=== PATIENT | male | born 1985 | race Caucasian/White ===

== ENCOUNTER 2021-10-18 18:34 | Emergency (ER) | payer OTHER, SELFPAY ==
[2021-10-18 19:09] VITALS: BP 128/69; PULSE 75; RESP 20; TEMP 36.9; O2SAT 97; BMI 20.8
--- NOTE | 2021-10-18 19:47 | ED.ANIMALBIT ---
HPI - Animal Bite General Chief Complaint: Animal Bite Stated Complaint: dog bite Time Seen by Provider: 10/18/21 19:47 History of Present Illness HPI narrative: patient complains of dog bite to left forearm from a known dog The dog belongs to his neighbor and was behind a fence and he was walking past the yd close to the fence and the daughter urged charge the fence and got his head over the fence and reached across to bite him in the forearm, no other injury no other complaint, he does not know the rabies status of the dog but he does know with the tree farmer is in the dog can be observed Related Data Previous Rx's Medication Instructions Recorded amoxicillin 875 mg-potassium 1 tab PO BID 3 days #6 tabs 10/18/21 clavulanate 125 mg tablet Allergies Allergy/AdvReac Type Severity Reaction Status Date / Time No Known Allergies Allergy Mild NONE Verified 10/18/21 19:14 Review of Systems Review of Systems: positive for left arm dog bite Negatives are no headache no head injury no neck pain no chest pain no shortness of breath no dizziness no confusion no fainting no feeling faint no abdominal pain no difficulty walking no other extremity injuries Yes all other systems are reviewed and are negative [facility] Past Medical History Source: nursing notes reviewed Social History Social History Advance Directives: No Advance Directives Information Provided: Yes Physical Exam ED Vital Signs: Vital Signs - 24 hr 10/18/21 19:09 10/18/21 20:30 10/18/21 20:29 Temperature 98.5 F 97.8 F Pulse Rate 75 65 76 Respiratory Rate 20 16 18 Blood Pressure 128/69 134/68 136/71 Pulse Oximetry 97 97 97 Oxygen Delivery Method Room Air Room Air Room Air BMI result Body Mass Index 20.8 general appearance is no acute distress Head is normocephalic atraumatic Neck is supple Respiratory no distress Extremities full range of motion x4 Left fore arm exam is there a bite mckenzie on the dorsal aspect of the left forearm which are superficial, there is full range of motion in the elbow wrist and hand, there is no tendon deficit on extension or flexion and neurovascular intact distal, there is no swelling Course Course Course Narrative: patient with superficial bites to the left forearm from a dog as the wound clean, no suturing is necessary He is given Augmentin and a tetanus shot Rabies vaccination is withheld as the dog is known and can be observed for 10 days Discharge Plan Discharge Clinical Impression: Dog bite Patient Disposition: Home, Self-Care Additional Instructions: you had a tetanus shot Augmentin preventative antibiotic You need to call animal control to report the dog as they will usually check to see if the dog has rabies shots and monitor that the dog is alive and well for 10 days As long as the dog that bit You can be observed and is known to be alive healthy not sick for the next 10 days then there is no way you can get rabies from that dog and you will not need rabies shots If the dog is lost to follow-up in you cannot confirm it is alive and well you will return to the hospital for rabies shots if the dog get sick or dies in the next 10 days you will return to the hospital for rabies shots Return any time for any wound infection redness swelling any signs of inf Prescriptions: New amoxicillin-pot clavulanate 875-125 mg tablet 1 tab PO BID 3 Days Qty: 6 0RF Stand Alone Forms: Work/School Release Interventions: ED Discharge Assessment Last Done: 10/18/21 20:54 Discharge Date/Time: 10/18/21 20:56
[2021-10-18] MEDS: Diphth,Pertus(ACell),Tet Adult 0.5 ML SYRINGE IM (20:25)
[2021-10-18] MEDS: Amoxicillin/Potassium Clav 875 MG TABLET PO (20:26)
[2021-10-18 20:29] VITALS: BP 136/71; PULSE 76; RESP 18; O2SAT 97
[2021-10-18 20:30] VITALS: BP 134/68; PULSE 65; RESP 16; TEMP 36.6; O2SAT 97
== END 2021-10-18 20:56 | disposition home or self-care (01) ==
PROVIDERS: Emergency Provider Physician Assistant Medical; PCP Internal Medicine
DX: S50.872A Other superficial bite of left forearm, initial encounter (principal); W54.0XXA Bitten by dog, initial encounter; Y93.01 Activity, walking, marching and hiking; Y92.480 Sidewalk as the place of occurrence of the external cause; Y99.9 Unspecified external cause status
CPT/HCPCS: 90471; 90715; 99284

== ENCOUNTER 2022-03-06 20:54 | Emergency (ER) | payer OTHER, SELFPAY ==
[2022-03-06 20:56] VITALS: BP 131/81; PULSE 72; RESP 20; TEMP 36.4; O2SAT 99; BMI 22.4
--- NOTE | 2022-03-06 21:04 | ECG_ITS ---
Test Reason : GENERAL MEDICAL Blood Pressure : / mmHG Vent. Rate : 062 BPM Atrial Rate : 062 BPM P-R Int : 172 ms QRS Dur : 084 ms QT Int : 380 ms P-R-T Axes : 073 004 003 degrees QTc Int : 385 ms Normal sinus rhythm ST elevation consider lateral injury or acute infarct ACUTE MA / STEMI Abnormal ECG Referred By: Generic ED Physician Electronically Signed By:
--- NOTE | 2022-03-06 21:09 | PC.NURSE ---
pt currently resting comfortably on stretcher in room, denies chest pain, SOB. Reports left arm pain radiating upwards towards scapula. Pt also reports right ankle swelling
--- NOTE | 2022-03-06 21:42 | ED_ITS ---
HPI - Chest Pain General Chief Complaint: Extremity Problem Stated Complaint: Chest pain Time Seen by Provider: 03/06/22 21:39 Source: patient Mode of arrival: ambulatory Limitations: no limitations History of Present Illness HPI narrative: Patient with no significant past medical history active smoker been having left arm pain for last 2 weeks no relation with exertion or neck movements or hand movements no paresthesias no skin discoloration no chest pain or palpitation. Patient came here as pain is constant it is not going away Related Data Previous Rx's Medication Instructions Recorded amoxicillin 875 mg-potassium 1 tab PO BID 3 days #6 tabs 10/18/21 clavulanate 125 mg tablet Allergies Allergy/AdvReac Type Severity Reaction Status Date / Time No Known Allergies Allergy Mild NONE Verified 10/18/21 19:14 Review of Systems Review of Systems: Yes all other systems are reviewed and are negative [facility] Social History Social History Advance Directives: No Advance Directives Information Provided: No Physical Exam Vital Signs: Vital Signs: Last Vital Signs Temp 97.6 F 03/06/22 20:56 Pulse 72 03/06/22 20:56 Resp 20 03/06/22 20:56 BP 131/81 03/06/22 20:56 Pulse Ox 99 03/06/22 20:56 O2 Del Method 03/06/22 20:56 BMI result Body Mass Index 22.4 Appearance: Alert. Oriented X3. No acute distress. Eyes: No pallor or icterus ENT: Pharynx normal. Oral Mucosa moist Neck: Normal inspection. Neck supple. CVS: Normal heart rate and rhythm. Pulses normal. Respiratory: No respiratory distress. Equal air entry bilateral, no wheezing/rales/rhonchi Abdomen: Soft and nontender. Bowel sounds are present, no mass palpable, no CVA tenderness Skin: Skin warm and dry. Normal skin color. Normal skin turgor. Extremities: No lower extremity edema. No calf tenderness Neuro: Oriented X 3. No motor deficit. Medical Decision Making Medical Decision Making [facility] Narrative: Patient cardiac workup is negative D-dimer also negative likely cardiac pain likely musculoskeletal discharge patient home Lab Data [facility] Lab Attestation statement: I reviewed the patient's lab results. 03/06/22 22:27 03/06/22 22:27 Labs: Lab Results 03/06/22 03/06/22 03/06/22 Range/Units 22:27 22:27 22:27 WBC 7.4 (4.8-10.8) X10*3/uL RBC 4.78 (4.60-5.80) X10*6/uL Hgb 14.7 (14.0-18.0) g/dl Hct 42.1 (42.0-52.0) % MCV 88.1 (80.0-98.0) fL MCH 30.8 (27.0-33.0) pg MCHC 34.9 (31.0-36.0) g/dl RDW 12.5 (11.0-16.0) % Plt Count 196 (160-400) X10*3/uL MPV 9.1 L (9.4-12.4) fL Immature Gran % (Auto) 0.3 (0.0-0.4) % Neut % (Auto) 69.1 (45-73) % Lymph % (Auto) 22.4 (20-40) % [place] % (Auto) 7.0 (2-11) % Eos % (Auto) 1.1 (0-4) % Baso % (Auto) 0.1 (0-2) % Lymph # (Auto) 1.7 (1.2-4.9) X10*3/uL [place] # (Auto) 0.5 (0.1-1.2) X10*3/uL Eos # (Auto) 0.1 (0.0-0.4) X10*3/uL Baso # (Auto) 0.0 (0.0-0.2) X10*3/uL Abs Immat Gran (auto) 0.02 (0.00-0.03) X10*3/uL Absolute Neuts (auto) 5.1 (2.0-8.3) x10*3/uL Absolute Nucleated RBC 0.000 (0.0-0.012) X10*3/uL Nucleated RBC % (auto) 0.0 (0.0-0.2) /100WBC PT 9.9 L (10.0-13.1) SEC INR 0.9 (0.9-1.1) D-Dimer High Sensitivty < 150 NG/ML Sodium 138 (135-145) mmol/L Potassium 4.5 (3.3-5.1) mmol/L Chloride 102 (96-108) mmol/L Carbon Dioxide 29 (22-29) mmol/L Anion Gap 12 (12-20) BUN 17 H (9-16) mg/dL Creatinine 0.76 (0.5-1.4) mg/dL Estim Creat Clear Calc 142.2 Estimated GFR > 60 Random Glucose 105 (60-115) mg/dL Calcium 9.3 (8.4-10.2) mg/dL Magnesium 1.9 (1.6-2.6) mg/dL Total Bilirubin 0.5 (0.0-1.0) mg/dL AST 27 (5-37) U/L ALT 23 (0-40) U/L Alkaline Phosphatase 69 (39-117) U/L Troponin I High Sens (<3.5-35.0) ng/L Total Protein 6.9 (6.5-8.0) g/dL Albumin 4.6 (3.5-5.0) g/dL 03/06/22 Range/Units 22:27 WBC (4.8-10.8) X10*3/uL RBC (4.60-5.80) X10*6/uL Hgb (14.0-18.0) g/dl Hct (42.0-52.0) % MCV (80.0-98.0) fL MCH (27.0-33.0) pg MCHC (31.0-36.0) g/dl RDW (11.0-16.0) % Plt Count (160-400) X10*3/uL MPV (9.4-12.4) fL Immature Gran % (Auto) (0.0-0.4) % Neut % (Auto) (45-73) % Lymph % (Auto) (20-40) % Alger % (Auto) (2-11) % Eos % (Auto) (0-4) % Baso % (Auto) (0-2) % Lymph # (Auto) (1.2-4.9) X10*3/uL [place] # (Auto) (0.1-1.2) X10*3/uL Eos # (Auto) (0.0-0.4) X10*3/uL Baso # (Auto) (0.0-0.2) X10*3/uL Abs Immat Gran (auto) (0.00-0.03) X10*3/uL Absolute Neuts (auto) (2.0-8.3) x10*3/uL Absolute Nucleated RBC (0.0-0.012) X10*3/uL Nucleated RBC % (auto) (0.0-0.2) /100WBC PT (10.0-13.1) SEC INR (0.9-1.1) D-Dimer High Sensitivty NG/ML Sodium (135-145) mmol/L Potassium (3.3-5.1) mmol/L Chloride (96-108) mmol/L Carbon Dioxide (22-29) mmol/L Anion Gap (12-20) BUN (9-16) mg/dL Creatinine (0.5-1.4) mg/dL Estim Creat Clear Calc Estimated GFR Random Glucose (60-115) mg/dL Calcium (8.4-10.2) mg/dL Magnesium (1.6-2.6) mg/dL Total Bilirubin (0.0-1.0) mg/dL AST (5-37) U/L ALT (0-40) U/L Alkaline Phosphatase (39-117) U/L Troponin I High Sens < 3.5 (<3.5-35.0) ng/L Total Protein (6.5-8.0) g/dL Albumin (3.5-5.0) g/dL Independent Interpretation I performed an independent interpretation of an: EKG Interpretation: Normal sinus rhythm sinus bradycardia heart rate 59 beats per minute incomplete RBBB no acute ST wave changes no acute ischemia Scores Heart Score History: -0- slightly suspicious ECG: -0- normal Age: -0- < or = 45 Risk factory: -0- no risk factors known Troponin: -0- < or = normal limit Score: 0 Risk: 1.7% Discharge Plan Discharge Clinical Impression: Musculoskeletal arm pain Patient Disposition: Home, Self-Care Instructions: Arm Pain (ED) Additional Instructions: Tylenol/Motrin for pain as needed Prescriptions: No Action amoxicillin-pot clavulanate 875-125 mg tablet 1 tab PO BID 3 Days Qty: 6 0RF
[2022-03-06 22:33] LABS: MANUAL DIFF FLAG NO
[2022-03-06 22:34] LABS: Basophils Percent Auto 0.1 % (0-2); Eosinophils Absolute Auto 0.1 X10*3/uL (0.0-0.4); Eosinophils Percent Auto 1.1 % (0-4); Hematocrit 42.1 % (42.0-52.0); Hemoglobin 14.7 g/dl (14.0-18.0); Imm Gran Abs Auto 0.02 X10*3/uL (0.00-0.03); Imm Gran Pct Auto 0.3 % (0.0-0.4); Lymphocytes Absolute Auto 1.7 X10*3/uL (1.2-4.9); Lymphocytes Percent Auto 22.4 % (20-40); Mean Corpuscular HGB Conc 34.9 g/dl (31.0-36.0); Mean Corpuscular Hemoglobin 30.8 pg (27.0-33.0); Mean Corpuscular Volume 88.1 fL (80.0-98.0); Mean Platelet Volume 9.1 fL (9.4-12.4); Monocytes Absolute Auto 0.5 X10*3/uL (0.1-1.2); Neutrophils Absolute Auto 5.1 x10*3/uL (2.0-8.3); Neutrophils Percent Auto 69.1 % (45-73); Platelet Count 196 X10*3/uL (160-400); Red Blood Count 4.78 X10*6/uL (4.60-5.80); Red Cell Distribution Width 12.5 % (11.0-16.0); White Blood Count 7.4 X10*3/uL (4.8-10.8)
[2022-03-06 22:40] LABS: INTERNATIONAL NORM RATIO 0.9 (0.9-1.1); Prothrombin Time 9.9 SEC (10.0-13.1)
[2022-03-06 22:43] LABS: D Dimer High Sensitivity < 150 NG/ML
[2022-03-06 22:49] LABS: Alanine Aminotransferase 23 U/L (0-40); Albumin Level 4.6 g/dL (3.5-5.0); Alkaline Phosphatase 69 U/L (39-117); Anion Gap 12 (12-20); Aspartate Amino Transferase 27 U/L (5-37); Bilirubin Total 0.5 mg/dL (0.0-1.0); Blood Urea Nitrogen 17 mg/dL (9-16); Calcium 9.3 mg/dL (8.4-10.2); Carbon Dioxide 29 mmol/L (22-29); Chloride 102 mmol/L (96-108); Creatinine Clr Calc Pharmacy 142.2; Estimated Glomerular Filt Rate > 60; Glucose Random 105 mg/dL (60-115); Magnesium 1.9 mg/dL (1.6-2.6); Potassium 4.5 mmol/L (3.3-5.1); Sodium 138 mmol/L (135-145); Total Protein 6.9 g/dL (6.5-8.0)
[2022-03-06 22:58] LABS: Troponin-I High Sensitivity < 3.5 ng/L (<3.5-35.0)
== END 2022-03-06 23:45 | disposition home or self-care (01) ==
PROVIDERS: Emergency Provider Internal Medicine; PCP Internal Medicine
DX: R07.9 Chest pain, unspecified (principal); M79.602 Pain in left arm
CPT/HCPCS: 36415; 80053; 83735; 84484; 85025; 85379; 85610; 93005; 99283

== ENCOUNTER 2023-08-04 13:39 | Outpatient (AMB) | payer OTHER, SELFPAY ==
--- NOTE | 2023-08-04 16:09 | MHC.OFFVISPS ---
Intake Vital Signs 08/04/23 16:10 Height 6 ft Weight 170 lb Intake Visit Reasons: Consult Dispute Resolution Specialist Required: No Allergies No Known Allergies Allergy (Mild, Verified 10/18/21 19:14) NONE HPI- Psychiatric Chief Complaint: Consult HPI Narrative: pt struggling with ADHD symptoms including constantly on the go, restless, inattentive at times, difficultly prioritizing, going from one tasks/project to another, too much energy, difficulty relaxing, forgetful, difficulty settling down at night and going to sleep; pt also reports anxiety including social anxiety and anxiety in unstructured social settings,. He identifies as an introvert and prefers solo activities. He has coping skills for bedtime routine including listening to podcasts or watching videos before bedtime . He exercises every day walking briskly 4- miles a day. he eats fairly well but at times depends on fast food. He denies SI or HI. Past Psychiatric History: PCP used to prescribe meds; dx with ADHD approximately age 9 or 10. pt stopped meds 1 year ago to see if would be okay without meds due to being on for many years. IPLOC 2 times age [age] due to anxiety and depression in context of parents divorce Subjective Subjective Review of Systems Medical Review of Systems: unchanged Mental Status Exam Mental Status Exam Patient Appearance: Well Grooomed and Appropriate Patient Orientation: Person, Place, Time and Situation Level of Consciousness: Awake Patient Behavior: Appropriate Mood Description: Appropriate and Nervous Affect Description: Appropriate and Nervous Patient Cognition Impaired: No Ability to Follow Directions: Good Speech Pattern: Clear and Coherent Memory Description: Intact Hallucinations: None Delusions: Not Present Thought Process: Intact and Goal Oriented Thought Content: positive for Intact and positive for Goal Oriented Judgement: Good Assessment and Plan Assessment & Plan (1) Social anxiety disorder: Status: Acute Code(s): F40.10 - Social phobia, unspecified (2) ADHD (attention deficit hyperactivity disorder): Status: Acute Qualifiers: Attention deficit-hyperactivity disorder type: combined inattentive-hyperactive Qualified Code(s): F90.2 - Attention-deficit hyperactivity disorder, combined type Code(s): F90.9 - Attention-deficit hyperactivity disorder, unspecified type Plan restart concerta and ritalin EKG in preparation for medication combination consider clonidine 0.1 mg at bedtime if needed in future discussed therapy t work on social anxiety discussed meeting 3-5 session and then consulting PCP re: continuing prescription Medications: New methylphenidate HCl ER (Concerta) Partial Fill upon patient request. 36 mg PO DAILY 30 tabs 0RF methylphenidate HCl (Ritalin) Partial Fill upon patient request. 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 Self Management counseling: Mod caffeine/ETOH intake, Sleep hygiene and General coping skills Medication management counseling: Effectiveness, Side effects, Dosing range, Duration, Drug interaction, Adherence and Other Diagnosis and Prognosis Counseling: Accuracy of diagnosis, Prognosis over time, Impact of diagnosis on life functions, Impact of family relationship, Problematic behaviors secondary to diagnosis and Adequacy of current interventions Details: I spent 60 minutes reviewing the record, seeing the patient and documenting in the medical record. Counseling provided to the patient/caregiver as outlined below. Addressed patient/caregiver concerns regarding current medication regime including effective adherence. Addressed patient/caregiver concerns regarding diagnosis and prognosis including accuracy of diagnosis, prognosis over time, impact of diagnosis. Addressed patient/caregiver concerns regarding impact of recent stressors. 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 Substance History: tobacco 12 cigarettes a day, THC occasional use, no ETOH no street drugs no prescription drug misuse Trauma History: parental conflict/divorce Coding Level of Care Code Psych Diag Eval w/Med (65110) Diagnoses Social anxiety disorder F40.10 Attention deficit hyperactivity disorder (ADHD), combined type F90.2 Attention deficit-hyperactivity disorder type: combined inattentive-hyperactive
== END 2023-08-04 14:46 | disposition home or self-care (01) ==
LOC: HO.HOP 13:39
PROVIDERS: PCP Internal Medicine; Visit Provider Clinical Nurse Specialist Psychiatric/Mental Health
DX: F40.10 Social phobia, unspecified (principal); F90.2 Attention-deficit hyperactivity disorder, combined type
CPT/HCPCS: 90792

== ENCOUNTER → 2023-08-04 13:39 | Outpatient (BNVA) | payer OTHER, SELFPAY | PROVIDERS: PCP Internal Medicine; Visit Provider Clinical Nurse Specialist Psychiatric/Mental Health | DX: F40.10 Social phobia, unspecified (principal); F90.9 Attention-deficit hyperactivity disorder, unspecified type | CPT/HCPCS: 90792 ==

== ENCOUNTER → 2023-08-06 13:39 | Outpatient (REF) | payer OTHER, SELFPAY ==
--- NOTE | 2023-08-06 13:46 | ECG_ITS ---
Test Reason : ADD Blood Pressure : / mmHG Vent. Rate : 102 BPM Atrial Rate : 102 BPM P-R Int : 148 ms QRS Dur : 092 ms QT Int : 326 ms P-R-T Axes : 071 018 058 degrees QTc Int : 424 ms Sinus tachycardia Otherwise normal ECG When compared with ECG of 06-MAR-2022 21:47, Vent. rate has increased BY 43 BPM RSR' pattern in V1 is no longer Present Referred By: Quiana Patel Electronically Signed By:Grant Ribera
== END ==
LOC: HO.CARD 13:39
PROVIDERS: PCP Internal Medicine; Visit Provider Clinical Nurse Specialist Psychiatric/Mental Health
DX: F90.9 Attention-deficit hyperactivity disorder, unspecified type (principal); Z79.899 Other long term (current) drug therapy
CPT/HCPCS: 93005

== ENCOUNTER → 2023-08-06 13:46 | Outpatient (BNV) | payer OTHER, SELFPAY | PROVIDERS: PCP Internal Medicine; Visit Provider Internal Medicine Cardiovascular Disease | DX: R00.0 Tachycardia, unspecified (principal) | CPT/HCPCS: 93010 ==

== ENCOUNTER 2023-08-24 13:37 | Outpatient (AMB) | payer OTHER, SELFPAY ==
--- NOTE | 2023-08-24 13:38 | MHC.OFFVISPS ---
Intake Intake Visit Reasons: Consult Process Control Programmer Required: No Allergies No Known Allergies Allergy (Mild, Verified 10/18/21 19:14) NONE Medication List - Last Reconciled 08/24/23 by Quiana Patel APRN methylphenidate HCl (Ritalin) 10 mg PO DAILY methylphenidate HCl ER (Concerta) 36 mg PO DAILY HPI- Psychiatric Chief Complaint: Consult HPI Narrative: pt reports improvedADHD symptoms with the addition of concerta and ritalin; he reports less distractibility, improved ability to finish tasks and complete projects; he is less scattered and less forgetful; he also reports less anxiety and more able to settle down at night and not overthink. He is sleeping through the night- less tossing and turning. sleeping 7 hours; he is eating well; no change in weight or activity. no increase in anxiety; he denies depression; he is isolated but he enjoys solitary activities; he does enjoy work and tried to socialize with co-workers at work joining in conversations at times. I reviewed patient records from when he was inpatient as a young adult around the age of 18 or 19. He and I discussed his drug use at that time and he agrees to be honerst about any change in his use of substances in preset; he reports no problems since his early 20s. He denies SI or Hi. No A/V H . no etoh or drug abuse. We discussed a prn medication for anxiety and sleep when needed; he is in agreement to try clonidine 0.1mg Past Psychiatric History: PCP used to prescribe meds; dx with ADHD approximately age 9 or 10. pt stopped meds 1 year ago to see if would be okay without meds due to being on for many years. IPLOC 2 times age [age] due to anxiety and depression in context of parents divorce Subjective Subjective Subjective Medication Compliance: Yes Side effects from medications: No Review of Systems Medical Review of Systems: unchanged Mental Status Exam Mental Status Exam Patient Appearance: Well Grooomed and Appropriate Patient Orientation: Person, Place, Time and Situation Level of Consciousness: Awake and Alert Patient Behavior: Appropriate and Cooperative Mood Description: Appropriate and Anxious (mild ) Affect Description: Appropriate and Anxious (mild ) Patient Cognition Impaired: No Ability to Follow Directions: Good Speech Pattern: Clear Memory Description: Intact Hallucinations: None Delusions: Not Present Thought Process: Intact Thought Content: positive for Intact Judgement: Good Assessment and Plan Assessment & Plan (1) ADHD (attention deficit hyperactivity disorder): Status: Acute Qualifiers: Attention deficit-hyperactivity disorder type: combined inattentive-hyperactive Qualified Code(s): F90.2 - Attention-deficit hyperactivity disorder, combined type Code(s): F90.9 - Attention-deficit hyperactivity disorder, unspecified type (2) Social anxiety disorder: Status: Acute Code(s): F40.10 - Social phobia, unspecified Plan continue concerta 36 mg qm and ritalin 10mg at 3 om. trial of clonidine 0.1mg daily as needed for anxiety or sleep Medications: New clonidine HCl 0.1 mg PO DAILY PRN 30 tabs 0RF anxiety Refilled methylphenidate HCl (Ritalin) Partial Fill upon patient request. 10 mg PO DAILY 30 tabs 0RF methylphenidate HCl ER (Concerta) Partial Fill upon patient request. 36 mg PO DAILY 30 tabs 0RF Counseling and coordination of Care Pt. Self Management counseling: Exercise, Mod caffeine/ETOH intake, Sleep hygiene and General coping skills Medication management counseling: Effectiveness, Side effects, Dosing range, Duration, Drug interaction and Adherence Diagnosis and Prognosis Counseling: Accuracy of diagnosis, Prognosis over time, Impact of diagnosis on life functions and Adequacy of current interventions Details: I spent 30 minutes reviewing the record, seeing the patient and documenting in the medical record. Counseling provided to the patient/caregiver as outlined below. Addressed patient/caregiver concerns regarding current medication regime including effective adherence. Addressed patient/caregiver concerns regarding diagnosis and prognosis including accuracy of diagnosis, prognosis over time, impact of diagnosis. Addressed patient/caregiver concerns regarding impact of recent stressors. 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 Substance History: tobacco 12 cigarettes a day, THC occasional use, no ETOH no street drugs no prescription drug misuse Trauma History: parental conflict/divorce Coding Level of Care Code Est Pt Level 4 (96888) Diagnoses Attention deficit hyperactivity disorder (ADHD), combined type F90.2 Attention deficit-hyperactivity disorder type: combined inattentive-hyperactive Social anxiety disorder F40.10
== END 2023-08-24 14:12 | disposition home or self-care (01) ==
LOC: HO.HOP 13:37
PROVIDERS: PCP Internal Medicine; Visit Provider Clinical Nurse Specialist Psychiatric/Mental Health
DX: F90.2 Attention-deficit hyperactivity disorder, combined type (principal); F40.10 Social phobia, unspecified
CPT/HCPCS: 99214

== ENCOUNTER → 2023-08-24 13:37 | Outpatient (BNVA) | payer OTHER, SELFPAY | PROVIDERS: PCP Internal Medicine; Visit Provider Clinical Nurse Specialist Psychiatric/Mental Health | DX: F90.9 Attention-deficit hyperactivity disorder, unspecified type (principal); Z79.899 Other long term (current) drug therapy ==

== ENCOUNTER 2023-09-20 14:10 | Outpatient (AMB) | payer OTHER, SELFPAY ==
--- NOTE | 2023-09-20 13:37 | MHC.OFFVISPS ---
Intake Intake Visit Reasons: Depression Press Feeder Required: No Allergies No Known Allergies Allergy (Mild, Verified 10/18/21 19:14) NONE Medication List - Last Reconciled 09/20/23 by Quiana Patel APRN methylphenidate HCl (Ritalin) 10 mg PO DAILY methylphenidate HCl ER (Concerta) 54 mg PO QAM HPI- Psychiatric Chief Complaint: Depression HPI Narrative: Pt tolerating increase in concerta to 54 mg daily; no side effects; eating well sleeping well; mood is stable; feels the concerta is helping him focus, stay on task and organize tasks. he is less distracted; more able to sit still; he still runs every day- walks if too hot out.; he has gained approximately 3.5 pounds in last 3 months. he reports work is stressful but he is coping well. No SI no HI.. no sign of shelbi; reports mild anxiety that is manageable with coping skills. Past Psychiatric History: PCP used to prescribe meds; dx with ADHD approximately age 9 or 10. pt stopped meds 1 year ago to see if would be okay without meds due to being on for many years. IPLOC 2 times age [age] due to anxiety and depression in context of parents divorce Subjective Subjective Subjective Medication Compliance: Yes Side effects from medications: No Review of Systems Medical Review of Systems: unchanged Mental Status Exam Mental Status Exam Patient Appearance: Well Grooomed and Appropriate Patient Orientation: Person, Place, Time and Situation Level of Consciousness: Awake and Alert Patient Behavior: Appropriate and Cooperative Mood Description: Appropriate and Anxious (mild ) Affect Description: Appropriate Patient Cognition Impaired: No Ability to Follow Directions: Good Speech Pattern: Clear Hallucinations: None Delusions: Not Present Thought Process: Intact and Goal Oriented Thought Content: positive for Intact and positive for Goal Oriented Judgement: Good Assessment and Plan Assessment & Plan (1) ADHD (attention deficit hyperactivity disorder): Status: Acute Qualifiers: Attention deficit-hyperactivity disorder type: combined inattentive-hyperactive Qualified Code(s): F90.2 - Attention-deficit hyperactivity disorder, combined type Code(s): F90.9 - Attention-deficit hyperactivity disorder, unspecified type Plan continue concerta 54 mg daily in am return in 3 months Medications: Refilled methylphenidate HCl ER (Concerta) Partial Fill upon patient request. 54 mg PO QAM 60 tabs 0RF ADHD Counseling and coordination of Care Pt. Self Management counseling: Maintenance-social rhythm, Mod caffeine/ETOH intake, Nutrition education and improvement, Sleep hygiene and General coping skills Medication management counseling: Effectiveness, Side effects, Dosing range, Drug interaction and Adherence Diagnosis and Prognosis Counseling: Accuracy of diagnosis, Prognosis over time and Adequacy of current interventions Details: I spent 30 minutes reviewing the record, seeing the patient and documenting in the medical record. Counseling provided to the patient/caregiver as outlined below. Addressed patient/caregiver concerns regarding current medication regime including effective adherence. Addressed patient/caregiver concerns regarding diagnosis and prognosis including accuracy of diagnosis, prognosis over time, impact of diagnosis. Addressed patient/caregiver concerns regarding impact of recent stressors. 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 Substance History: tobacco 12 cigarettes a day, THC occasional use, no ETOH no street drugs no prescription drug misuse Trauma History: parental conflict/divorce Coding Level of Care Code Est Pt Level 4 (30277) Diagnoses Attention deficit hyperactivity disorder (ADHD), combined type F90.2 Attention deficit-hyperactivity disorder type: combined inattentive-hyperactive
== END 2023-09-20 14:12 | disposition home or self-care (01) ==
LOC: HO.HOP 14:10
PROVIDERS: PCP Internal Medicine; Visit Provider Clinical Nurse Specialist Psychiatric/Mental Health
DX: F90.2 Attention-deficit hyperactivity disorder, combined type (principal)
CPT/HCPCS: 99214

== ENCOUNTER → 2023-09-20 14:10 | Outpatient (BNVA) | payer OTHER, SELFPAY | PROVIDERS: PCP Internal Medicine; Visit Provider Clinical Nurse Specialist Psychiatric/Mental Health | DX: F90.9 Attention-deficit hyperactivity disorder, unspecified type (principal); Z79.899 Other long term (current) drug therapy ==

== ENCOUNTER 2023-12-20 14:03 | Outpatient (AMB) | payer OTHER, SELFPAY ==
--- NOTE | 2023-12-20 14:10 | A.OFFPSYCH_ITS ---
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 Required: No Allergies No Known Allergies Allergy (Mild, Verified 10/18/21 19:14) NONE Medication List - Last Reconciled 12/20/23 by Quiana Patel APRN methylphenidate HCl (Ritalin) 10 mg PO DAILY methylphenidate HCl ER (Concerta) 54 mg PO QAM HPI- Psychiatric Chief Complaint: Depression HPI Narrative: pt doing well with medications; reports good focus and concentration ; able to be more organized and keep routine; he is eating and sleeping on a schedule; has work stress but is coping well; no side effects reported; no medical changes Past Psychiatric History: PCP used to prescribe meds; dx with ADHD approximately age 9 or 10. pt stopped meds 1 year ago to see if would be okay without meds due to being on for many years. IPLOC 2 times age [age] due to anxiety and depression in context of parents divorce Subjective Subjective Subjective Medication Compliance: Yes Side effects from medications: No Review of Systems Medical Review of Systems: unchanged Mental Status Exam Mental Status Exam Patient Appearance: Appropriate Patient Orientation: Person, Place, Time and Situation Level of Consciousness: Awake and Appropriate Patient Behavior: Appropriate and Talkative Mood Description: Happy and Anxious Affect Description: Happy and Anxious Patient Cognition Impaired: No Ability to Follow Directions: Good Speech Pattern: Clear Memory Description: Intact Hallucinations: None Delusions: Not Present Thought Process: Intact Thought Content: positive for Intact Judgement: Good Assessment and Plan Assessment & Plan (1) ADHD (attention deficit hyperactivity disorder): Status: Acute Qualifiers: Attention deficit-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 10 mg PO DAILY 30 tabs 0RF methylphenidate HCl ER (Concerta) Partial Fill upon patient request. 54 mg PO QAM 60 tabs 0RF ADHD Counseling and coordination of Care Pt. Self Management counseling: Maintenance-social rhythm, Mod caffeine/ETOH intake, Sleep hygiene and General coping skills Medication management counseling: Effectiveness, Side effects, Dosing range, Duration, Drug interaction and Adherence Diagnosis and Prognosis Counseling: Accuracy of diagnosis, Prognosis over time and Adequacy of current interventions Details: I spent 30 minutes reviewing the record, seeing the patient and documenting in the medical record. Counseling provided to the patient/caregiver as outlined below. Addressed patient/caregiver concerns regarding current medication regime including effective adherence. Addressed patient/caregiver concerns regarding diagnosis and prognosis including accuracy of diagnosis, prognosis over time, impact of diagnosis. Addressed patient/caregiver concerns regarding impact of recent stressors. 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 Substance History: tobacco 12 cigarettes a day, THC occasional use, no ETOH no street drugs no prescription drug misuse Trauma History: parental conflict/divorce Coding Level of Care Code Est Pt Level 4 (13342) Diagnoses Attention deficit hyperactivity disorder (ADHD), combined type F90.2 Attention deficit-hyperactivity disorder type: combined inattentive- hyperactive Social anxiety disorder F40.10
== END 2023-12-20 14:26 | disposition home or self-care (01) ==
LOC: HO.HOP 14:03
PROVIDERS: PCP Internal Medicine; Visit Provider Clinical Nurse Specialist Psychiatric/Mental Health
DX: F90.2 Attention-deficit hyperactivity disorder, combined type (principal); F40.10 Social phobia, unspecified
CPT/HCPCS: 99214

== ENCOUNTER → 2023-12-20 14:03 | Outpatient (BNVA) | payer OTHER, SELFPAY | PROVIDERS: PCP Internal Medicine; Visit Provider Clinical Nurse Specialist Psychiatric/Mental Health | DX: F90.9 Attention-deficit hyperactivity disorder, unspecified type (principal); Z79.899 Other long term (current) drug therapy ==

== ENCOUNTER 2024-04-14 14:05 | Outpatient (AMB) | payer OTHER, SELFPAY ==
--- NOTE | 2024-04-14 14:11 | A.OFFPSYCH_ITS ---
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 Required: No Allergies No Known Allergies Allergy (Mild, Verified 10/18/21 19:14) NONE Medication List - Last Reconciled 04/14/24 by Quiana Patel APRN methylphenidate HCl (Ritalin) 10 mg PO DAILY methylphenidate HCl ER (Concerta) 54 mg PO QAM HPI- Psychiatric Chief Complaint: depression HPI Narrative: pt doing very well overall; he is compliant with medications; reports benefit and no side effects; he reports more focused and attentive; he is less distracted; this also helps him to be less anxious; he continues to prefer solitary activities when not working, sleep and appetite intact; functioning well at work. Past Psychiatric History: PCP used to prescribe meds; dx with ADHD approximately age 9 or 10. pt stopped meds 1 year ago to see if would be okay without meds due to being on for many years. IPLOC 2 times age [age] due to anxiety and depression in context of parents divorce Subjective Subjective Subjective Medication Compliance: Yes Side effects from medications: No Review of Systems Medical Review of Systems: unchanged Mental Status Exam Mental Status Exam Patient Appearance: Well Grooomed and Appropriate Patient Orientation: Person, Place, Time and Situation Level of Consciousness: Awake and Appropriate Patient Behavior: Appropriate and Cooperative Mood Description: Cheerful and Anxious Affect Description: Cheerful and Anxious Patient Cognition Impaired: No Ability to Follow Directions: Good Speech Pattern: Clear Memory Description: Intact Hallucinations: None Delusions: Not Present Thought Process: Intact and Goal Oriented Thought Content: positive for Intact and positive for Goal Oriented Judgement: Good Assessment and Plan Assessment & Plan (1) ADHD (attention deficit hyperactivity disorder): Status: Acute Qualifiers: Attention deficit-hyperactivity disorder type: combined inattentive- hyperactive Qualified Code(s): F90.2 - Attention-deficit hyperactivity disorder, combined type Code(s): F90.9 - Attention-deficit hyperactivity disorder, unspecified type (2) Social anxiety disorder: Status: Acute Code(s): F40.10 - Social phobia, unspecified Plan continue medications as is return in 6 months Medications: Refilled methylphenidate HCl (Ritalin) Partial Fill upon patient request. 10 mg PO DAILY 30 tabs 0RF methylphenidate HCl ER (Concerta) Partial Fill upon patient request. 54 mg PO QAM 30 tabs 0RF ADHD Counseling and coordination of Care Pt. Self Management counseling: Exercise, Maintenance-social rhythm, Nutrition education and improvement, Sleep hygiene, Behavior activation and General coping skills Medication management counseling: Effectiveness, Side effects, Dosing range, Duration, Drug interaction and Adherence Diagnosis and Prognosis Counseling: Accuracy of diagnosis, Prognosis over time, Impact of diagnosis on life functions and Adequacy of current interventions Details: I spent 35 minutes reviewing the record, seeing the patient and documenting in the medical record. Counseling provided to the patient/caregiver as outlined below. Addressed patient/caregiver concerns regarding current medication regime including effective adherence. Addressed patient/caregiver concerns regarding diagnosis and prognosis including accuracy of diagnosis, prognosis over time, impact of diagnosis. Addressed patient/caregiver concerns regarding impact of recent stressors. 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 Substance History: tobacco 12 cigarettes a day, THC occasional use, no ETOH no street drugs no prescription drug misuse Trauma History: parental conflict/divorce Coding Level of Care Code Est Pt Level 4 (74358) Diagnoses Attention deficit hyperactivity disorder (ADHD), combined type F90.2 Attention deficit-hyperactivity disorder type: combined inattentive- hyperactive Social anxiety disorder F40.10
== END 2024-04-14 15:57 | disposition home or self-care (01) ==
LOC: HO.HOP 14:05
PROVIDERS: PCP Internal Medicine; Visit Provider Clinical Nurse Specialist Psychiatric/Mental Health
DX: F90.2 Attention-deficit hyperactivity disorder, combined type (principal); F40.10 Social phobia, unspecified
CPT/HCPCS: 99214

== ENCOUNTER → 2024-04-14 14:05 | Outpatient (BNVA) | payer OTHER, SELFPAY | PROVIDERS: PCP Internal Medicine; Visit Provider Clinical Nurse Specialist Psychiatric/Mental Health ==

== ENCOUNTER 2024-09-28 14:06 | Outpatient (AMB) | payer OTHER, SELFPAY ==
--- NOTE | 2024-09-28 14:18 | A.OFFPSYCH_ITS ---
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 doing very well overall; he is compliant with medications; reports benefit and no side effects; he reports more focused and attentive; he is less distracted; this also helps him to be less anxious; he continues to prefer solitary activities when not working, sleep and appetite intact; functioning well at work. pt report s when he has a longer day 10mg at 3pm often doesn't feel as helpful. has taken 20 mg IR at 3pm in past with good effect Past Psychiatric History: PCP used to prescribe meds; dx with ADHD approximately age 9 or 10. pt stopped meds 1 year ago to see if would be okay without meds due to being on for many years. IPLOC 2 times age [age] due to anxiety and depression in context of parents divorce Subjective Subjective Subjective Medication Compliance: Yes Side effects from medications: No Review of Systems Medical Review of Systems: unchanged Mental Status Exam Mental Status Exam Patient Appearance: Well Grooomed and Appropriate Patient Orientation: Person, Place, Time and Situation Level of Consciousness: Awake and Appropriate Patient Behavior: Appropriate and Cooperative Mood Description: Cheerful and Anxious Affect Description: Cheerful and Anxious Patient Cognition Impaired: No Ability to Follow Directions: Good Speech Pattern: Clear Memory Description: Intact Hallucinations: None Delusions: Not Present Thought Process: Intact and Goal Oriented Thought Content: positive for Intact and positive for Goal Oriented Judgement: Good Assessment and Plan Assessment & Plan (1) ADHD (attention deficit hyperactivity disorder): Status: Acute Qualifiers: Attention deficit-hyperactivity disorder type: combined inattentive-hyperactive Qualified Code(s): F90.2 - Attention-deficit hyperactivity disorder, combined type Code(s): F90.9 - Attention-deficit hyperactivity disorder, unspecified type (2) Social anxiety disorder: Status: Acute Code(s): F40.10 - Social phobia, unspecified Plan continue medications as is return in 6 months Medications: New methylphenidate HCl (Ritalin) Partial Fill upon patient request. 20 mg PO DAILY@1500 30 tabs 0RF F90.2 - Attention-deficit hyperactivity disorder, combined type Refilled methylphenidate HCl ER (Concerta) Partial Fill upon patient request. 72 mg (2 x 36 mg) PO QAM 60 tabs 0RF Discontinued methylphenidate HCl (Ritalin) Partial Fill upon patient request. Discontinued Reason: Doctor's Order 10 mg PO DAILY 30 tabs 0RF Counseling and coordination of Care Pt. Self Management counseling: Exercise, Maintenance-social rhythm, Nutrition education and improvement, Sleep hygiene, Behavior activation and General coping skills Medication management counseling: Effectiveness, Side effects, Dosing range, Duration, Drug interaction and Adherence Diagnosis and Prognosis Counseling: Accuracy of diagnosis, Prognosis over time, Impact of diagnosis on life functions and Adequacy of current interventions Details: I spent 30 minutes reviewing the record, seeing the patient and documenting in the medical record. Counseling provided to the patient/caregiver as outlined below. Addressed patient/caregiver concerns regarding current medication regime including effective adherence. Addressed patient/caregiver concerns regarding diagnosis and prognosis including accuracy of diagnosis, prognosis over time, impact of diagnosis. Addressed patient/caregiver concerns regarding impact of recent stressors. 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 Substance History: tobacco 12 cigarettes a day, THC occasional use, no ETOH no street drugs no prescription drug misuse Trauma History: parental conflict/divorce Coding Level of Care Code Est Pt Level 4 (57899) Diagnoses Attention deficit hyperactivity disorder (ADHD), combined type F90.2 Attention deficit-hyperactivity disorder type: combined inattentive-hyperactive Social anxiety disorder F40.10
== END 2024-09-28 15:08 | disposition home or self-care (01) ==
LOC: HO.HOP 14:06
PROVIDERS: PCP Internal Medicine; Visit Provider Clinical Nurse Specialist Psychiatric/Mental Health
DX: F90.2 Attention-deficit hyperactivity disorder, combined type (principal); F40.10 Social phobia, unspecified
CPT/HCPCS: 99214